=== PATIENT | female | born 2000 | race Caucasian/White ===

== ENCOUNTER → 2024-03-08 | Outpatient (CLI) | payer BC, MEDICAID ==
[2024-03-09 10:06] LABS: Mumps IgG Antibody 62.3 AU/mL (Immune >10.9); Varicella Zoster IgG Antibody Reactive (Non Reactive)
== END | disposition home or self-care (01) ==
LOC: LAB 15:23
DX: Z01.84 Encounter for antibody response examination (principal)
CPT/HCPCS: 36415; 86706; 86735; 86762; 86765; 86787